=== PATIENT | male | born 1945 | race Hispanic/Latino ===

== ENCOUNTER 2017-04-27 05:43 | Observation (INO) | payer OTHER ==
[2017-04-25 09:47] VITALS: BP 99/69
[2017-04-25 09:52] LABS: BASOPHILS % (AUTO) 0.7 % (0.0-5.0); LYMPHOCYTES % (AUTO) 7.9 % (21.0-51.0); MEAN CORPUSCULAR HEMOGLOBIN 28.8 pg (27.0-33.0); MEAN CORPUSCULAR HGB CONC 33.1 g/dL (32.0-36.0); MONOCYTES % (AUTO) 6.8 % (3.0-13.0); NEUTROPHILS % (AUTO) 84.6 % (40.0-77.0); PLATELET COUNT (AUTO) 180 K/uL (130-400); RED BLOOD CELL COUNT(AUTO) 5.63 MIL/uL (4.50-6.20); RED CELL DISTRIBUTION WIDTH 16.4 % (11.0-15.5); WHITE BLOOD COUNT (AUTO) 11.9 K/uL (4.8-10.8)
[2017-04-25 09:59] LABS: CREATININE 1.8 mg/dL (0.5-1.5); POTASSIUM 3.9 mmol/L (3.5-5.1)
[2017-04-25 10:03] LABS: PARTIAL THROMBOPLASTIN TIME 25.2 SEC (26.3-35.5); PROTHROMBIN TIME 10.5 SEC (9.6-11.6)
[~2017-04-27] VITALS: Ht 160 cm; Wt 87.1 kg
[2017-04-27] VITALS (11 sets, daily range): BP systolic 90–127; BP diastolic 58–80
[~2017-04-27 05:43] MED LIST: ALLO100T PO; ASPI-1181 PO; ATOR-2 PO; CEFAZOLIN SODIUM 1 GM VIAL IVP SCH; EZET10TA26 PO; FLUD0.1T2 PO; HYDR5TAB2 PO; LEVO100T6 PO; LISI2.5T2 PO; OMEP20CA10 PO; SODIUM CHLORIDE 0.9% 500ML 500 ML IV SCH; TICA90TA PO; WATER FOR INJECTION,STERILE 20 ML VIAL IJ SCH
[2017-04-27 06:05] LABS: HEMATOCRIT 47.1 % (42-54); MEAN CORPUSCULAR HEMOGLOBIN 28.7 pg (27.0-33.0); NUCLEATED RED BLOOD CELLS 0.1 % (0.0-0.19); PLATELET COUNT (AUTO) 180 K/uL (130-400); RED BLOOD CELL COUNT(AUTO) 5.42 MIL/uL (4.50-6.20); RED CELL DISTRIBUTION WIDTH 16.4 % (11.0-15.5); WHITE BLOOD COUNT (AUTO) 9.2 K/uL (4.8-10.8)
[2017-04-27 06:43] LABS: BASOPHILS % (MANUAL) 3 % (0-2); LYMPHOCYTES % (MANUAL) 14 % (22-44); MAN.DIFF COMMENT-IMPRESSION MANUAL DIFFERENTIAL; MONOCYTES % (MANUAL) 4 % (2-9); PLATELET MORPHOLOGY COMMENT ADEQUATE; REACTIVE LYMPHOCYTES 7 % (0-0); SEGMENTED NEUTROPHILS % 72 % (40-70)
[2017-04-27] MEDS ORDERED: BUPIVACAINE/PF 0.25% 30ML VIAL IJ ONE (10:34)
[2017-04-27] MEDS ORDERED: LIDOCAINE HCL 1% MDV 50ML VIAL ONE (10:34)
[2017-04-27] MEDS ORDERED: CEFAZOLIN 1GM / D5W 50ML 150 ML ONE (10:34)
[2017-04-27] MEDS ORDERED: MIDAZOLAM HCL 1 MG/ML 2ML VIAL ONE ×2 (10:34→11:21)
[2017-04-27] MEDS ORDERED: MEPERIDINE-PF 25 MG/ML SYG ONE ×2 (10:34→11:20)
[2017-04-27] MEDS ORDERED: METO1TAB43 PO (10:47)
[2017-04-27] MEDS ORDERED: ACETAMINOPHEN 325 MG TAB PO PRN (12:00)
[2017-04-27] MEDS ORDERED: ONDANSETRON HCL 4 MG/2 ML VIAL IV PRN (12:00)
[2017-04-27] MEDS ORDERED: TEMAZEPAM 30 MG CAP PO PRN (12:00)
[2017-04-27] MEDS ORDERED: ACETAMINOPHEN-CODEINE 300/30MG TAB PO PRN ×2 (12:00)
[2017-04-27] MEDS: TICAGRELOR 90 MG TABLET PO SCH (18:20)
[2017-04-27] MEDS: ALLOPURINOL 100 MG TABLET PO SCH (19:29)
[2017-04-27] MEDS ORDERED: HYDROCORTISONE 20 MG TABLET PO SCH (21:00)
[2017-04-27] MEDS ORDERED: ATORVASTATIN CALCIUM 40 MG TABLET PO SCH (21:00)
[2017-04-27] MEDS ORDERED: LISINOPRIL 2.5 MG TABLET PO SCH (21:00)
[2017-04-27] MEDS ORDERED: PANTOPRAZOLE SODIUM 40 MG TABLET.DR PO SCH (21:00)
[2017-04-28 03:58] VITALS: BP 123/82
[2017-04-28 07:43] VITALS: BP 107/75
[2017-04-28] MEDS: TICAGRELOR 90 MG TABLET PO SCH (08:00)
[2017-04-28] MEDS: ALLOPURINOL 100 MG TABLET PO SCH (08:00)
[2017-04-28] MEDS ORDERED: LEVOTHYROXINE 100 MCG TABLET PO SCH (09:00)
[2017-04-28] MEDS ORDERED: FLUDROCORTISONE ACETATE 0.1 MG TABLET PO SCH (09:00)
[2017-04-28] MEDS ORDERED: HYDROCORTISONE 20 MG TABLET PO SCH (09:00)
[2017-04-28] MEDS ORDERED: METOPROLOL HCTZ PO SCH (09:00)
[2017-04-28] MEDS ORDERED: EZETIMIBE 10 MG TAB PO SCH (09:00)
[2017-04-28] MEDS ORDERED: ASPIRIN 81 MG EC TAB PO SCH (09:00)
[2017-04-28 11:00] VITALS: BP 101/72
[2017-04-28 16:00] VITALS: BP 121/71
== END 2017-04-28 18:05 | disposition home or self-care (01) ==
LOC: DAH 05:43 → DAHIP 05:44 → DAH 05:44 → 2AH 12:35
PROVIDERS: ADMIT Internal Medicine Cardiovascular Disease; ATTEND Internal Medicine Cardiovascular Disease
DX: I25.5 Ischemic cardiomyopathy (principal); E03.9 Hypothyroidism, unspecified; E78.5 Hyperlipidemia, unspecified; I25.2 Old myocardial infarction; I11.0 Hypertensive heart disease with heart failure; I50.22 Chronic systolic (congestive) heart failure; I25.10 Atherosclerotic heart disease of native coronary artery without angina pectoris; Z85.528 Personal history of other malignant neoplasm of kidney; Z95.810 Presence of automatic (implantable) cardiac defibrillator; Z90.5 Acquired absence of kidney; Z82.49 Family history of ischemic heart disease and other diseases of the circulatory system; Z79.52 Long term (current) use of systemic steroids; Z79.899 Other long term (current) drug therapy
CPT/HCPCS: 33249; 36415 ×2; 71045; 80048; 85025 ×2; 85610; 85730; A4606; C1721; C1895 ×2; G0378 ×36; J0690; J2175 ×2; J2250 ×2; J3490 ×2; J7040; 99152; 99153

== ENCOUNTER 2018-04-23 08:13 | Emergency (ER) | payer MEDICARE, OTHER ==
[~2018-04-23 08:13] MED LIST changes: -CEFAZOLIN SODIUM 1 GM VIAL IVP SCH; +DOXY100V2 PO; -HYDR5TAB2 PO; +HYDR5TAB8 PO; +METO1TAB43 PO; -SODIUM CHLORIDE 0.9% 500ML 500 ML IV SCH; -WATER FOR INJECTION,STERILE 20 ML VIAL IJ SCH
[2018-04-23 08:53] LABS: BASOPHILS % (AUTO) 0.6 % (0.0-5.0); HEMATOCRIT 42.5 % (42-54); LYMPHOCYTES % (AUTO) 9.6 % (21.0-51.0); MEAN CORPUSCULAR HEMOGLOBIN 23.7 pg (27.0-33.0); MEAN CORPUSCULAR HGB CONC 30.4 g/dL (32.0-36.0); MEAN CORPUSCULAR VOLUME 78.1 fL (79-99); MONOCYTES % (AUTO) 5.1 % (3.0-13.0); NEUTROPHILS % (AUTO) 84.7 % (40.0-77.0); PLATELET COUNT (AUTO) 197 K/uL (130-400); RED BLOOD CELL COUNT(AUTO) 5.44 MIL/uL (4.50-6.20); RED CELL DISTRIBUTION WIDTH 18.7 % (11.0-15.5); WHITE BLOOD COUNT (AUTO) 14.3 K/uL (4.8-10.8)
[2018-04-23 08:59] LABS: CREATININE 1.6 mg/dL (0.5-1.5); POTASSIUM 3.8 mmol/L (3.5-5.1)
[2018-04-23 09:05] LABS: ALBUMIN 3.3 g/dL (3.5-5.0); BILIRUBIN,TOTAL 0.4 mg/dL (0.2-1.0); TOTAL PROTEIN, SERUM 7.5 g/dL (6.0-8.3)
[2018-04-23] MEDS ORDERED: LIDOCAINE HCL 1% 20 ML VIAL ONE (10:27)
[2018-04-23] MEDS ORDERED: CEFTRIAXONE SODIUM 1 GM ONE (10:27)
== END 2018-04-23 10:57 | disposition home or self-care (01) ==
LOC: EDH 08:13
DX: J18.9 Pneumonia, unspecified organism (principal); I50.9 Heart failure, unspecified; I11.0 Hypertensive heart disease with heart failure; I25.2 Old myocardial infarction; Z85.528 Personal history of other malignant neoplasm of kidney; Z88.6 Allergy status to analgesic agent
CPT/HCPCS: 36415; 71046; 80053; 85025; 87040; 87804 ×2; 96372; 99284; J0696

== ENCOUNTER 2019-05-14 16:52 | Emergency (ER) | payer MEDICARE ==
[~2019-05-14 16:52] MED LIST changes: -EZET10TA26 PO; +EZET10TA48 PO; -OMEP20CA10 PO; +OMEP20CA12 PO
[2019-05-14 17:40] LABS: EOSINOPHILS % (AUTO) 0.5 % (0.0-8.0); HEMATOCRIT 40.9 % (42-54); MEAN CORPUSCULAR HEMOGLOBIN 22.4 pg (27.0-33.0); MEAN CORPUSCULAR HGB CONC 30.1 g/dL (32.0-36.0); MEAN CORPUSCULAR VOLUME 74.6 fL (79-99); NEUTROPHILS % (AUTO) 73.2 % (40.0-77.0); PLATELET COUNT (AUTO) 212 K/uL (130-400); RED BLOOD CELL COUNT(AUTO) 5.48 MIL/uL (4.50-6.20); RED CELL DISTRIBUTION WIDTH 17.2 % (11.0-15.5); WHITE BLOOD COUNT (AUTO) 9.8 K/uL (4.8-10.8)
[2019-05-14 17:54] LABS: CREATININE 1.6 mg/dL (0.5-1.5); POTASSIUM 4.1 mmol/L (3.5-5.1)
[2019-05-14 17:59] LABS: ALBUMIN 3.2 g/dL (3.5-5.0); BILIRUBIN,TOTAL 0.4 mg/dL (0.2-1.0); INR 0.97 (0.85-1.15); MAGNESIUM 1.9 mg/dL (1.80-2.40); PARTIAL THROMBOPLASTIN TIME 25.4 SEC (26.3-35.5); PROTHROMBIN TIME 10.2 SEC (9.6-11.6); TOTAL PROTEIN, SERUM 6.7 g/dL (6.0-8.3)
[2019-05-14 18:16] LABS: B-TYPE NATRIURETIC PEPTIDE 460 pg/mL (0-100)
[2019-05-14] MEDS ORDERED: MAGNESIUM OXIDE 400 MG TABLET PO ONE (18:47)
== END 2019-05-14 18:58 | disposition home or self-care (01) ==
LOC: EDH 16:52
DX: I49.9 Cardiac arrhythmia, unspecified (principal); I11.0 Hypertensive heart disease with heart failure; I50.9 Heart failure, unspecified; Z95.810 Presence of automatic (implantable) cardiac defibrillator; Z85.528 Personal history of other malignant neoplasm of kidney
CPT/HCPCS: 36415; 71045; 80053; 82550; 83735; 83880; 84484; 85025; 85610; 85730; 93005

== ENCOUNTER 2020-05-09 08:19 | Inpatient (IN) | payer MEDICARE ==
[2020-05-09] VITALS (27 sets, daily range): BP systolic 99–157; BP diastolic 56–92
[~2020-05-09 08:19] MED LIST changes: -ASPI-1181 PO; +ASPI-1443 PO; +HYDR5TAB14 PO; -HYDR5TAB8 PO; +LISI2.5T13 PO; -LISI2.5T2 PO
[2020-05-09] MEDS ORDERED: ONDANSETRON 4MG INJ ONE ×2 (09:05→16:57)
[2020-05-09] MEDS ORDERED: HYDROMORPHONE 0.5 MG SYG (0.5MG/0.5ML) ONE ×2 (09:06→13:09)
[2020-05-09 09:37] LABS: BASOPHILS % (AUTO) 0.2 % (0.0-5.0); LYMPHOCYTES % (AUTO) 4.9 % (21.0-51.0); MEAN CORPUSCULAR HEMOGLOBIN 22.1 pg (27.0-33.0); MEAN CORPUSCULAR VOLUME 78.8 fL (79-99); MONOCYTES % (AUTO) 5.3 % (3.0-13.0); PLATELET COUNT (AUTO) 225 K/uL (130-400); RED BLOOD CELL COUNT(AUTO) 4.44 MIL/uL (4.50-6.20); RED CELL DISTRIBUTION WIDTH 21.2 % (11.0-15.5); WHITE BLOOD COUNT (AUTO) 10.6 K/uL (4.8-10.8)
[2020-05-09 09:47] LABS: INR 1.01 (0.85-1.15)
[2020-05-09 09:48] LABS: PARTIAL THROMBOPLASTIN TIME 26.4 SEC (26.3-35.5)
[2020-05-09 09:50] LABS: ALBUMIN 2.3 g/dL (3.5-5.0); BILIRUBIN,TOTAL 0.7 mg/dL (0.2-1.0)
[2020-05-09 09:51] LABS: CREATININE 8.2 mg/dL (0.5-1.5)
[2020-05-09] MEDS ORDERED: 0.9%NACL 1000ML 1,000 ML IV ONE (14:02)
[2020-05-09] MEDS ORDERED: 0.9%NACL 1000ML 1,000 ML IV SCH (14:30)
[2020-05-09] MEDS: 0.9%NACL 1000ML 1,000 ML IV SCH (14:30)
[2020-05-09] MEDS ORDERED: CEFTRIAXONE 1G VIAL IVP SCH (14:45)
[2020-05-09] MEDS ORDERED: HYDROMORPHONE 0.5 MG SYG (0.5MG/0.5ML) IVP PRN (14:45)
[2020-05-09] MEDS ORDERED: CEFTRIAXONE 1G VIAL ONE (15:07)
[2020-05-09 15:35] LABS: % IRON SATURATION 12.8 % (30-44)
[2020-05-09] MEDS: HYDROCORTISONE SOD SUCCINATE 100 MG/2 ML VIAL IV SCH ×2 (16:00→23:17)
[2020-05-09] MEDS ORDERED: KETAMINE 50MG/ML SYRINGE 50 MG/ML DISP.SYRIN IV ONE (16:55)
[2020-05-09] MEDS ORDERED: HYDROCORTISONE SOD SUCCINATE 100 MG/2 ML VIAL ONE (16:55)
[2020-05-09] MEDS ORDERED: ROCURONIUM 10MG/1ML SYR 10 MG/ML ML ONE (16:57)
[2020-05-09] MEDS ORDERED: GLYCOPYRROLATE 1 MG/5 ML SYRINGE ONE (16:57)
[2020-05-09] MEDS ORDERED: LIDOCAINE PF 100MG/5ML (2%) SYRINGE 5ML ONE (16:57)
[2020-05-09] MEDS ORDERED: NEOSTIGMINE 5MG/5ML SYR IV ONE (16:57)
[2020-05-09] MEDS ORDERED: PROPOFOL 10 MG/ML 20ML VIAL IV ONE (16:57)
[2020-05-09] MEDS ORDERED: MIDAZOLAM HCL 1 MG/ML 2ML VIAL ONE (17:13)
[2020-05-09] MEDS ORDERED: IOHEXOL-350 50ML VIAL IV ONE (17:31)
[2020-05-09] MEDS ORDERED: EPHEDRINE SULFATE 50 MG/ML AMPULE ONE (17:37)
[2020-05-09] MEDS ORDERED: IPRATROPIUM/ALBUTEROL SULFATE 3 ML SOLUTION IH ONE (19:15)
[2020-05-09 21:10] LABS: INR 0.99 (0.85-1.15); PROTHROMBIN TIME 10.8 SEC (9.6-11.6)
[2020-05-09] MEDS: ATORVASTATIN 40 MG TABLET PO SCH (23:17)
[2020-05-10 04:05] VITALS: BP 99/64
[2020-05-10] MEDS: 0.9%NACL 1000ML 1,000 ML IV SCH ×2 (04:48→19:06)
[2020-05-10 05:18] LABS: HEMATOCRIT 31.9 % (42-54); MEAN CORPUSCULAR HGB CONC 29.2 g/dL (32.0-36.0); RED BLOOD CELL COUNT(AUTO) 4.04 MIL/uL (4.50-6.20); RED CELL DISTRIBUTION WIDTH 21.1 % (11.0-15.5); WHITE BLOOD COUNT (AUTO) 10.9 K/uL (4.8-10.8)
[2020-05-10 06:15] LABS: ALBUMIN 1.7 g/dL (3.5-5.0); BILIRUBIN,TOTAL 0.6 mg/dL (0.2-1.0); CREATININE 6.7 mg/dL (0.5-1.5); PHOSPHORUS 7.4 mg/dL (2.5-4.9); POTASSIUM 4.9 mmol/L (3.5-5.1); THYROID STIMULATING HORMONE 0.45 uIU/mL (0.36-3.74); TOTAL PROTEIN, SERUM 5.6 g/dL (6.0-8.3); URIC ACID 9.4 mg/dL (2.6-7.2)
[2020-05-10] MEDS: LEVOTHYROXINE 100 MCG TABLET PO SCH (07:00)
[2020-05-10] MEDS ORDERED: APIX2.5T PO (07:45)
[2020-05-10] MEDS ORDERED: ALPR2TAB2 PO (07:45)
[2020-05-10] MEDS ORDERED: CABO20TA PO (07:47)
[2020-05-10] MEDS ORDERED: FURO20TA4 PO (07:53)
[2020-05-10] MEDS ORDERED: GABA300S PO (07:57)
[2020-05-10 08:00] VITALS: BP 98/56
[2020-05-10] MEDS ORDERED: NITR0.4T50 SL (08:10)
[2020-05-10] MEDS: HYDROCORTISONE SOD SUCCINATE 100 MG/2 ML VIAL IV SCH ×3 (09:00→20:20)
[2020-05-10] MEDS: METOPROLOL SUCCINATE 50 MG TAB.SR.24H PO SCH (09:00)
[2020-05-10] MEDS: EZETIMIBE 10 MG TAB PO SCH (09:00)
[2020-05-10] MEDS: Vitamin B Complex/Vit C/Folic Acid PO SCH (09:00)
[2020-05-10] MEDS: PANTOPRAZOLE 40 MG TAB DR PO SCH (09:00)
[2020-05-10] MEDS ORDERED: NITROGLYCERIN 0.4 MG SL TAB SL SCH (10:30)
[2020-05-10] MEDS ORDERED: 0.9% NACL 250ML 250 ML IV SCH (11:45)
[2020-05-10] MEDS ORDERED: 0.9% NACL 250ML 250 ML IV ONE (11:45)
[2020-05-10 11:48] VITALS: BP 90/62
[2020-05-10] MEDS: GABAPENTIN 300 MG CAPSULE PO SCH ×2 (14:00→20:18)
[2020-05-10 14:01] LABS: HEMATOCRIT 28.4 % (42-54); LYMPHOCYTES % (AUTO) 3.1 % (21.0-51.0); MEAN CORPUSCULAR HEMOGLOBIN 22.6 pg (27.0-33.0); MEAN CORPUSCULAR HGB CONC 28.9 g/dL (32.0-36.0); MEAN CORPUSCULAR VOLUME 78.2 fL (79-99); MONOCYTES % (AUTO) 4.6 % (3.0-13.0); PLATELET COUNT (AUTO) 201 K/uL (130-400); RED BLOOD CELL COUNT(AUTO) 3.63 MIL/uL (4.50-6.20); RED CELL DISTRIBUTION WIDTH 21.2 % (11.0-15.5); WHITE BLOOD COUNT (AUTO) 10.7 K/uL (4.8-10.8)
[2020-05-10 14:08] LABS: POTASSIUM 4.2 mmol/L (3.5-5.1)
[2020-05-10 16:00] VITALS: BP 97/61
[2020-05-10] MEDS: ATORVASTATIN 40 MG TABLET PO SCH (20:23)
[2020-05-10] MEDS: APIXABAN 2.5 MG TABLET PO SCH (20:23)
[2020-05-10 20:29] VITALS: BP 103/64
[2020-05-10] MEDS ORDERED: NON-FORMULARY MEDICATION 1 EACH (Hydrocortisone 10 MG) PO SCH (21:00)
[2020-05-10] MEDS ORDERED: NON-FORMULARY MEDICATION 1 EACH (Atorvastatin Calcium 80 MG) PO SCH (21:00)
[2020-05-10] MEDS ORDERED: CEFTRIAXONE 1G VIAL IVP SCH (22:00)
[2020-05-10 23:47] VITALS: BP 101/60
[2020-05-11 03:47] VITALS: BP 113/63
[2020-05-11 04:19] LABS: HEMATOCRIT 29.4 % (42-54); MEAN CORPUSCULAR HEMOGLOBIN 21.6 pg (27.0-33.0); MEAN CORPUSCULAR HGB CONC 27.6 g/dL (32.0-36.0); MEAN CORPUSCULAR VOLUME 78.4 fL (79-99); RED BLOOD CELL COUNT(AUTO) 3.75 MIL/uL (4.50-6.20); RED CELL DISTRIBUTION WIDTH 21.2 % (11.0-15.5); WHITE BLOOD COUNT (AUTO) 10.1 K/uL (4.8-10.8)
[2020-05-11 04:40] LABS: CREATININE 4.5 mg/dL (0.5-1.5); PHOSPHORUS 5.3 mg/dL (2.5-4.9); POTASSIUM 4.4 mmol/L (3.5-5.1); URIC ACID 9.2 mg/dL (2.6-7.2)
[2020-05-11] MEDS: LEVOTHYROXINE 100 MCG TABLET PO SCH (06:00)
[2020-05-11 07:58] VITALS: BP 115/71
[2020-05-11] MEDS: EZETIMIBE 10 MG TAB PO SCH (09:00)
[2020-05-11] MEDS: APIXABAN 2.5 MG TABLET PO SCH (09:00)
[2020-05-11] MEDS ORDERED: FUROSEMIDE 20 MG TABLET PO SCH (09:00)
[2020-05-11] MEDS ORDERED: FLUDROCORTISONE ACETATE 0.1 MG TABLET PO SCH (09:00)
[2020-05-11] MEDS: Vitamin B Complex/Vit C/Folic Acid PO SCH (09:00)
[2020-05-11] MEDS: GABAPENTIN 300 MG CAPSULE PO SCH ×2 (09:00→14:00)
[2020-05-11] MEDS: HYDROCORTISONE SOD SUCCINATE 100 MG/2 ML VIAL IV SCH ×2 (09:00→14:00)
[2020-05-11] MEDS ORDERED: HYDROCHLOROTHIAZIDE 25 MG TABLET PO SCH (09:00)
[2020-05-11] MEDS ORDERED: LEVOTHYROXINE 100 MCG TABLET PO SCH (09:00)
[2020-05-11] MEDS: PANTOPRAZOLE 40 MG TAB DR PO SCH (09:00)
[2020-05-11] MEDS ORDERED: EZETIMIBE 10 MG TAB PO SCH (09:00)
[2020-05-11] MEDS: METOPROLOL SUCCINATE 50 MG TAB.SR.24H PO SCH (09:00)
[2020-05-11] MEDS ORDERED: HYDROCORTISONE 20 MG PO SCH (09:00)
[2020-05-11] MEDS ORDERED: ASPIRIN 81 MG EC TAB PO SCH (09:00)
[2020-05-11] MEDS: 0.9%NACL 1000ML 1,000 ML IV SCH (10:38)
[2020-05-11 11:49] VITALS: BP 102/67
[2020-05-11 12:00] VITALS: BP 102/67
[2020-05-11 16:00] VITALS: BP 120/71
[2020-05-11] MEDS ORDERED: NON-FORMULARY MEDICATION 1 EACH (Omeprazole 20 MG) PO SCH (21:00)
[2020-05-11] MEDS ORDERED: LISINOPRIL 2.5 MG TABLET PO SCH (21:00)
[2020-05-11] MEDS ORDERED: ALPRAZOLAM 1 MG TAB PO SCH (21:00)
[2020-05-11] MEDS ORDERED: ALLOPURINOL 100 MG TABLET PO SCH (21:00)
[2020-05-12] MEDS ORDERED: CABOZANTINIB S MALATE 20 MG PO SCH (09:00)
== END 2020-05-11 18:04 | disposition home or self-care (01) | DRG 660 ==
LOC: EDH 08:19 → EDHIP 14:26 → 4CH 20:02
PROVIDERS: ADMIT Internal Medicine; ATTEND Internal Medicine
PROC: 0T778DZ Dilation of Left Ureter with Intraluminal Device, Via Natural or Artificial Opening Endoscopic (ICD-10-PCS; principal; 2020-05-09 17:15)
PROC: 0TC78ZZ Extirpation of Matter from Left Ureter, Via Natural or Artificial Opening Endoscopic (ICD-10-PCS; 2020-05-09 17:15)
DX: N13.2 Hydronephrosis with renal and ureteral calculous obstruction (principal); E27.40 Unspecified adrenocortical insufficiency; C64.9 Malignant neoplasm of unspecified kidney, except renal pelvis; I13.0 Hypertensive heart and chronic kidney disease with heart failure and stage 1 through stage 4 chronic kidney disease, or unspecified chronic kidney disease; I42.9 Cardiomyopathy, unspecified; I48.20 Chronic atrial fibrillation, unspecified; I50.20 Unspecified systolic (congestive) heart failure; N17.9 Acute kidney failure, unspecified; D63.8 Anemia in other chronic diseases classified elsewhere; N13.1 Hydronephrosis with ureteral stricture, not elsewhere classified; K21.9 Gastro-esophageal reflux disease without esophagitis; I25.10 Atherosclerotic heart disease of native coronary artery without angina pectoris; M1A.9XX0 Chronic gout, unspecified, without tophus (tophi); D50.9 Iron deficiency anemia, unspecified; Q54.0 Hypospadias, balanic; N18.9 Chronic kidney disease, unspecified; Z79.01 Long term (current) use of anticoagulants; Z80.8 Family history of malignant neoplasm of other organs or systems; Z90.5 Acquired absence of kidney; Z95.5 Presence of coronary angioplasty implant and graft; Z95.810 Presence of automatic (implantable) cardiac defibrillator; Z98.1 Arthrodesis status; Z82.49 Family history of ischemic heart disease and other diseases of the circulatory system; Z85.830 Personal history of malignant neoplasm of bone
CPT/HCPCS: 36415; 71045; 74021; 74176; 80048; 80053; 82150; 82360; 82550; 83540; 83550; 83690; 84100; 84145; 84443; 84484; 84550; 85025; 85027; 85610; 85730; 93005; 94640; A4344; A4354; C1758; C1769; C2617; G0378; J0696; J1170; J1720; J2001; J2250; J2405; J2704; J2710; J3490; J7030; J7050; Q9967